=== PATIENT | female | born 1965 | race Two or more races ===

== ENCOUNTER 2022-09-22 16:41 | Emergency (ER) | payer OTHER ==
[~2022-09-22] VITALS: Ht 172.7 cm; Wt 127.0 kg
[2022-09-22] MEDS ORDERED: GLUMETZA1000 MG PO (16:57)
== END 2022-09-22 21:58 | disposition home or self-care (01) ==
LOC: ER 16:41
DX: S00.83XA Contusion of other part of head, initial encounter (principal); W19.XXXA Unspecified fall, initial encounter; Y93.9 Activity, unspecified; Y92.89 Other specified places as the place of occurrence of the external cause; Y99.9 Unspecified external cause status